=== PATIENT | male | born 1945 | race Caucasian/White ===

== ENCOUNTER 2021-01-09 11:17 | Observation (INO) | payer MEDICARE ==
[2021-01-09] VITALS (7 sets, daily range): BP systolic 103–131; BP diastolic 68–87
[~2021-01-09] VITALS: Ht 177.8 cm; Wt 66.5 kg
[~2021-01-09 11:17] MED LIST: CIPROFLOXACIN 400 MG in IV 1 EA IV ONE; KETOROLAC 60MG 2ML VIAL As Ordered ONE; LIDOCAINE 1% MDV 20ML VIAL SQ PRN; LIDOCAINE 2% INJ 100 MG/5 ML SYRINGE As Ordered ONE; LR 1,000 ML IV ONE; ONDANSETRON 4MG/2ML VIAL As Ordered ONE; PRESCAP PO; ROCURONIUM BROMIDE 50 MG/5 ML VIAL As Ordered ONE; SUGAMMADEX SODIUM 500 MG/5 ML VIAL (BRIDION) As Ordered ONE; TAMS1CAP17 PO; dexameTHASONE 4 MG/ML 1ML VIAL (J1100 PER 1MG) As Ordered ONE; fentaNYL 100 MCG/2 ML INJECTION (J3010) As Ordered ONE; propofoL 200 MG/20 ML VIAL As Ordered ONE
[2021-01-09] MEDS ORDERED: ePHEDrine SULFATE 25 MG/5 ML(5MG/ML) SYRINGE As Ordered ONE (13:04)
[2021-01-09] MEDS ORDERED: NORCO, ANEXSIA 5/325MG TABLET (HYDROcodone/ACETAMINOPHEN) PO PRN (13:25)
[2021-01-09] MEDS ORDERED: ONDANSETRON 4MG/2ML VIAL IV PRN (13:45)
[2021-01-09] MEDS ORDERED: oxyCODONE 5MG TAB PO PRN (13:45)
[2021-01-09] MEDS ORDERED: fentaNYL 100 MCG/2 ML INJECTION (J3010) IV PRN (13:45)
[2021-01-09] MEDS ORDERED: LR 1,000 ML IV SCH (13:45)
--- NOTE | 2021-01-09 13:46 | ROOPDOC ---
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 POSTPROCEDURE DIAGNOSES: [same]. PROCEDURE PERFORMED: [turp]. SURGEON: [Bay Cobos], COREMAKER PIPE: [none], MD ANESTHESIA: [general lma]. ESTIMATED BLOOD LOSS: Approximately [5] mL. COMPLICATIONS: [none]. REMARKS: [75yo wm with retention secondary to bph. Turp arranged. No guarantees given. Risks discussed including infection, pain, bleeding, scarring, injury to gu tract, failure of surgery, need for more surgery, incontinence, risks of anesthesia and others.]. FINDINGS: SPECIMENS REMOVED: [turp chips] PROCEDURE NOTE: . DESCRIPTION OF PROCEDURE: [ Met with pt in preop area and surgery again discussed. Informed consent obtained. Pt brought to OR room. Surgery done under iv Cipro coverage. Dorsal litho position. Well padded. General anesthesia secured without difficulty. Prep'd and draped in sterile fashion. Time out performed. Resectoscope sheath advanced into bladder with its visual obturator and resectoscope then assembled. Bladder inspected. Uo's found. Bilobar hyperplasia with kissing lateral lobes. Mild median lobe, so to speak. Sphincter and veru identified. Turp performed. I resected right lateral lobe and median lobe. I got deep in the midline 2cm proximal to bladder neck, deeper than I wanted to. I decided to stop resecting after the right lateral lobe and median lobe thinking that irrigation might be absorbed more than usual or extravasate given the deep resection described above. I didn't resect beyond the veru. Uo's not injured. Hemostasis secured with roller ball. Turp chips evacuated from bladder and handed off. I advanced a wire through the resectoscope sheath into the bladder and then placed a 20fr alatna catheter over the wire. 20cc in the balloon. Pt tolerated all well and left room in satisfactory condition. I am bringing pt in overnight on observation status rather than sending him home because of some bleeding (without being able to start cbi) and he has no one to stay with him tonight.]. REMEDIOS COBOS MD Jan 09, 2021 13:46
[2021-01-09] MEDS ORDERED: oxyBUTYnin 5 MG TAB PO SCH (21:00)
[2021-01-09] MEDS: PHENAZOPYRIDINE 100 MG TAB PO SCH (21:24)
[2021-01-10] MEDS ORDERED: CIPROFLOXACIN 400 MG in IV 1 EA IV SCH ×2
[2021-01-10 02:00] VITALS: BP 103/70
[2021-01-10 06:24] VITALS: BP 115/69
--- NOTE | 2021-01-10 07:38 | IPNPDOC ---
Date Seen The patient was seen on 01/10/21. Progress Note pt seen and examined no events overnight lying in bed eating breakfast avss looks comfortable belly soft catheter draining urine stained with Pyridium, not bloody plan is remove catheter for voiding trial stop oxybutynin home today d/w pt and nursing VS, I&O, 24H, Fishbone Vital Signs/I&O Vital Signs Date Time Temp Pulse Resp B/P (MAP) Pulse Ox O2 Delivery O2 Flow Rate FiO2 01/10/21 06:24 97.5 71 16 115/69 (84) 95 Room Air 01/09/21 14:09 2.0 I&O- Last 24 Hours up to 6 AM 01/10/21 06:00 Intake Total 2030 ml Output Total 1700 ml Balance 330 ml REMEDIOS COBOS MD Jan 10, 2021 07:38
[2021-01-10] MEDS ORDERED: CIPR-249 PO (07:43)
[2021-01-10] MEDS ORDERED: PYRI1TAB5 PO (07:43)
[2021-01-10] MEDS: PHENAZOPYRIDINE 100 MG TAB PO SCH (08:41)
[2021-01-10] MEDS ORDERED: TAMSULOSIN 0.4 MG CAP PO SCH (09:00)
== END 2021-01-10 11:21 | disposition home or self-care (01) ==
LOC: M SDC 11:17 → M MSPAV 13:30
PROVIDERS: ADMIT Urology; ATTEND Urology
DX: N40.1 Benign prostatic hyperplasia with lower urinary tract symptoms (principal); J44.9 Chronic obstructive pulmonary disease, unspecified; Z79.899 Other long term (current) drug therapy; Z87.891 Personal history of nicotine dependence
CPT/HCPCS: 52601; 88305; C1769; G0378; J0744; J1100; J1885; J2405; J3010

== ENCOUNTER → 2021-01-16 | Outpatient (REF) | payer MEDICARE ==
[~2021-01-16] MED LIST changes: +CIPR-249 PO; -CIPROFLOXACIN 400 MG in IV 1 EA IV ONE; -KETOROLAC 60MG 2ML VIAL As Ordered ONE; -LIDOCAINE 1% MDV 20ML VIAL SQ PRN; -LIDOCAINE 2% INJ 100 MG/5 ML SYRINGE As Ordered ONE; -LR 1,000 ML IV ONE; -ONDANSETRON 4MG/2ML VIAL As Ordered ONE; +PYRI1TAB5 PO; -ROCURONIUM BROMIDE 50 MG/5 ML VIAL As Ordered ONE; -SUGAMMADEX SODIUM 500 MG/5 ML VIAL (BRIDION) As Ordered ONE; -dexameTHASONE 4 MG/ML 1ML VIAL (J1100 PER 1MG) As Ordered ONE; -fentaNYL 100 MCG/2 ML INJECTION (J3010) As Ordered ONE; -propofoL 200 MG/20 ML VIAL As Ordered ONE
[2021-01-16 14:24] LABS: APPEARANCE, URINE CLEAR (CLEAR); BACTERIA, URINE AUTO NEGATIVE (NEGATIVE); BILIRUBIN, URINE AUTO NEGATIVE (NEGATIVE); BLOOD, URINE BLOOD 2+ (NEGATIVE); COLOR, URINE AMBER (YELLOW); GLUCOSE, URINE (UA) AUTO NEGATIVE (NEGATIVE); KETONE, URINE AUTO NEGATIVE (NEGATIVE); LEUKOCYTE ESTERASE, URINE AUTO TRACE (NEGATIVE); MUCUS, URINE SMALL (NEGATIVE); NITRITE, URINE AUTO POSITIVE (NEGATIVE); PROTEIN, URINE AUTO 2+ mg/dL (NEGATIVE); RBC, URINE AUTO 141 /HPF (0-3); SPECIFIC GRAVITY URINE AUTO 1.014 (1.002-1.035); SQUAMOUS EPITHELIAL CELL UR AU 0 /HPF (0-6); WBC, URINE AUTO 17 /HPF (0-3)
== END ==
LOC: M SMT 13:33
PROVIDERS: ATTEND Nurse Practitioner Family
DX: R33.9 Retention of urine, unspecified (principal)

== ENCOUNTER → 2021-02-14 | Outpatient (REF) | payer MEDICARE ==
[2021-02-14 12:21] LABS: APPEARANCE, URINE CLEAR (CLEAR); BACTERIA, URINE AUTO NEGATIVE (NEGATIVE); BILIRUBIN, URINE AUTO NEGATIVE (NEGATIVE); BLOOD, URINE BLOOD 1+ (NEGATIVE); COLOR, URINE YELLOW (YELLOW); GLUCOSE, URINE (UA) AUTO NEGATIVE (NEGATIVE); KETONE, URINE AUTO NEGATIVE (NEGATIVE); LEUKOCYTE ESTERASE, URINE AUTO 1+ (NEGATIVE); NITRITE, URINE AUTO NEGATIVE (NEGATIVE); PROTEIN, URINE AUTO NEGATIVE (NEGATIVE); RBC, URINE AUTO 32 /HPF (0-3); SPECIFIC GRAVITY URINE AUTO 1.011 (1.002-1.035); SQUAMOUS EPITHELIAL CELL UR AU 0 /HPF (0-6); UROBILINOGEN, URINE AUTO 0.2 mg/dL (0.0-2.0); WBC, URINE AUTO 27 /HPF (0-3)
== END ==
LOC: M SMT 11:41
PROVIDERS: ATTEND Urology
DX: R36.1 Hematospermia (principal)